=== PATIENT | male | born 1985 | race Hispanic/Latino ===

== ENCOUNTER 2022-08-04 13:35 | Emergency (ER) | payer SELFPAY ==
[~2022-08-04] VITALS: Ht 160 cm; Wt 79.4 kg
[2022-08-04] MEDS ORDERED: LIDOCAINE HCL 1% LOCAL INJ 20 ML VIAL INJ ONE (14:45)
== END 2022-08-04 15:50 | disposition home or self-care (01) ==
LOC: ER 14:11
DX: S61.213A Laceration without foreign body of left middle finger without damage to nail, initial encounter (principal); W26.0XXA Contact with knife, initial encounter; Y93.G3 Activity, cooking and baking; Y92.89 Other specified places as the place of occurrence of the external cause
CPT/HCPCS: 12001; 73140; 99283; J2001